=== PATIENT | male | born 1975 ===

== ENCOUNTER → 2019-07-28 | Outpatient (CLI) | payer BC ==
--- NOTE | 2019-07-28 08:38 | US ---
EXAMINATION TYPE: US abdomen complete DATE OF EXAM: 07/28/2019 COMPARISON: None CLINICAL HISTORY: 44-year-old male R94.5 Abnormal Liver Function. Technique: Multiple sonographic naldo ges of the abdomen are obtained. FINDINGS: EXAM MEASUREMENTS: Liver Length: 17.6 cm Gallbladder Wall: 0.1 cm CBD: Difficult to visualize, estimated at 0.6 cm by the finishing range operator Spleen: 11.1 cm Right Kidney: 12.8 x 6.5 x 6.2 cm Left Kidney: 14.7 x 7.1 x 6.9 cm Pancreas: Only a portion of the pancreatic body is seen and shows no gross antibody. Head and tail s uboptimally visualized due to bowel gas. Liver: Increased attenuation, decreased visualization of vessels suggestive of fatty infiltration. T here is focal sparing near GB Gallbladder: wnl Evidence for sonographic Dobbins's sign: No CBD: Suboptimal visualization. Short interval follow-up can be performed. Spleen: wnl Right Kidney: No hydronephrosis. Left Kidney: Upper pole cyst = 2.3 x 2.0 x 2.1 cm. No hydronephrosis. Upper IVC: wnl Abd Aorta: wnl IMPRESSION: 1. Borderline hepatomegaly (17.6 cm) with moderate to severe hepatic steatosis. Correlate with LFTs, lipid profile, and patient risk factors. 2. Suboptimal visualization of the bile duct, estimated at 6 mm by the finishing range operator which is borderlin e dilated. Recommend short interval follow-up to reassess. In the meantime, correlate with alkaline p hosphatase and bilirubin levels.
== END | disposition home or self-care (01) ==
LOC: RADUSWWP 07:32 → MERGE 07:40
PROVIDERS: ATTEND Family Medicine
DX: K76.0 Fatty (change of) liver, not elsewhere classified (principal); K83.8 Other specified diseases of biliary tract; R16.0 Hepatomegaly, not elsewhere classified
CPT/HCPCS: 76700

== ENCOUNTER → 2019-09-08 | Outpatient (CLI) | payer BC ==
--- NOTE | 2019-09-08 11:38 | US ---
EXAMINATION TYPE: US abdomen complete DATE OF EXAM: 09/08/2019 COMPARISON: Ultrasound July 28, 2019 CLINICAL HISTORY: R93.2 Abnormal findings on diagnostic imaging of l. reassess liver size EXAM MEASUREMENTS: Liver Length: 19.0 cm Gallbladder Wall: 0.2 cm CBD: 0.5 cm Spleen: 11.2 cm Right Kidney: 11.3 x 5.3 x 5.5 cm Left Kidney: 12.4 x 5.5 x 6.7 cm Pancreas: wnl Liver: difficult to penetrate, slightly enlarged Gallbladder: wnl Evidence for sonographic Dobbins's sign: no CBD: wnl Spleen: wnl Right Kidney: wnl Left Kidney: wnl Upper IVC: wnl Abd Aorta: wnl The visualized liver remains heterogeneously hyperechoic. No intrahepatic ductal dilatation. Suboptim al evaluation of masses without focal mass identified. The intrahepatic portion of the IVC and visual ized abdominal aorta are within normal limits. There is no evidence of shadowing mobile cholelithias is. Common bile duct is upper limits of normal. The visualized portions of the pancreas are homogen ous. The spleen is unremarkable. Kidneys are symmetric and free of hydronephrosis. No renal lesion s are seen on images saved. Previously visualized 2.3 cm simple appearing thin-walled cyst upper pole left kidney not clearly seen on current study. IMPRESSION: Marked fatty infiltration of liver redemonstrated.
== END | disposition home or self-care (01) ==
LOC: RADUSWWP 07:38
PROVIDERS: ATTEND Family Medicine
DX: K76.0 Fatty (change of) liver, not elsewhere classified (principal)
CPT/HCPCS: 76700